=== PATIENT | female | born 1930 | race Caucasian/White ===

== ENCOUNTER 2017-09-12 16:36 | Outpatient (CLI) | payer MEDICARE, OTHER | END 2017-09-12 16:37 | disposition home or self-care (01) | LOC: BICRAD 16:36 | PROVIDERS: ATTEND Internal Medicine | DX: M25.521 Pain in right elbow (principal); M25.421 Effusion, right elbow; M19.021 Primary osteoarthritis, right elbow ==

== ENCOUNTER 2018-08-10 09:38 | Outpatient (CLI) | payer MEDICARE, OTHER | END 2018-08-10 09:39 | disposition home or self-care (01) | LOC: BICMAMMO 09:38 | PROVIDERS: ATTEND Internal Medicine | DX: Z12.31 Encounter for screening mammogram for malignant neoplasm of breast (principal); Z80.3 Family history of malignant neoplasm of breast | CPT/HCPCS: 77063; 77067 ==

== ENCOUNTER 2019-09-02 09:27 | Emergency (ER) | payer MEDICARE, OTHER ==
[2019-09-02 10:30] LABS: #Basophils 0.1 thou/uL (0.0-0.2); #Eosinphils 0.3 thou/uL (0.0-0.7); #Lymphocytes 1.6 thou/uL (1.20-3.40); #Monocytes 0.5 thou/uL (0.11-0.59); #Neutrophils 4.6 thou/uL (1.40-6.50); %Basophils 1.3 % (0.0-1.0); %Eosinophils 4.1 % (0.0-10.0); %Lymphocytes 22.4 % (21.0-51.0); %Monocytes 7.1 % (0.0-10.0); %Neutrophils 65.1 % (42.0-75.0); Hemoglobin 12.6 g/dL (12.0-16.0); Mean Corpuscular HGB CONC 33.3 g/dL (32.0-36.0); Mean Corpuscular Hemoglobin 32.4 pg (27.0-31.0); Mean Corpuscular Volume 97.4 fL (78.0-98.0); Mean Platelet Volume 10.4 fL (7.4-10.4); Platelet Count 132 thou/uL (130-400); RBC Distribution Width 14.1 % (11.5-14.5); Red Blood Cell (RBC) Count 3.89 mill/uL (4.20-5.40); White Blood Cell (WBC) Count 7.1 thou/uL (4.8-10.8)
[2019-09-02] MEDS ORDERED: Dexamethasone 4 mg/ml Vial ONE (10:30)
[2019-09-02] MEDS ORDERED: Lorazepam 2 MG/ML VIAL ONE (10:30)
[2019-09-02] MEDS ORDERED: Meclizine HCl 25 MG TAB ONE (10:30)
--- NOTE | 2019-09-02 10:57 | CT ---
Exam: CT brain PROVIDED CLINICAL HISTORY: Altered mental status, dizziness COMPARISON: 12/05/2005 FINDINGS: The ventricular system is normal in size and morphology. No evidence for intracranial hemorrhage or mass effect. There is opacification of the majority of the frontal sinus. Cerebral volume loss is noted. IMPRESSION: 1. No evidence for intracranial hemorrhage or mass effect. 2. Frontal sinus opacification as described.
[2019-09-02 10:59] LABS: ALT (SGPT) 24 U/L (8-55); AST (SGOT) 22 U/L (5-34); Alkaline Phosphatase 73 U/L (40-110); Anion Gap 13 mmol/L (10-20); BUN (Urea Nitrogen) 19 mg/dL (9.8-20.1); Bilirubin, Total 0.6 mg/dL (0.2-1.2); CK (CPK) 37 U/L (29-168); Calc. Creatinine Clearance 0 mL/min (70-130); Calcium 9.7 mg/dL (7.8-10.44); Carbon Dioxide 22 mmol/L (23-31); Chloride 110 mmol/L (98-107); Estimated GFR-MDRD 45; Globulin 3.1 g/dL (2.4-3.5); Glucose 100 mg/dL (83-110); Lipase 20 U/L (8-78); Potassium 3.9 mmol/L (3.5-5.1); Protein, Total 7.1 g/dL (6.0-8.3); Sodium 141 mmol/L (136-145)
[2019-09-02 11:10] LABS: CKMB 1.6 ng/mL (0-6.6)
[2019-09-02 12:23] LABS: Troponin I Less than 0.010 ng/mL (< 0.028)
== END 2019-09-02 12:54 | disposition home or self-care (01) ==
LOC: ERS 09:27
DX: I11.0 Hypertensive heart disease with heart failure (principal); I50.9 Heart failure, unspecified; J32.1 Chronic frontal sinusitis; I48.91 Unspecified atrial fibrillation; E78.5 Hyperlipidemia, unspecified; E78.00 Pure hypercholesterolemia, unspecified; Z79.899 Other long term (current) drug therapy; Z79.01 Long term (current) use of anticoagulants
CPT/HCPCS: 36415; 70450; 80053; 82550; 82553; 83690; 83880; 84484; 85025; 93005; 96361; 96374; 96375; J1100; J2060; J8597

== ENCOUNTER 2021-01-19 14:48 | Outpatient (CLI) | payer MEDICARE, OTHER ==
[2021-01-19 16:05] LABS: Anion Gap 14 mmol/L (10-20); BUN (Urea Nitrogen) 36 mg/dL (9.8-20.1); Calc. Creatinine Clearance 0 mL/min (70-130); Carbon Dioxide 23 mmol/L (23-31); Chloride 109 mmol/L (98-107); Glucose 86 mg/dL (83-110); Potassium 4.6 mmol/L (3.5-5.1); Sodium 141 mmol/L (136-145)
[2021-01-19 16:12] LABS: Hemoglobin 11.6 g/dL (12.0-15.5); Mean Corpuscular HGB CONC 32.4 g/dL (32.0-36.0); Mean Corpuscular Hemoglobin 31.9 pg (27.0-33.0); Mean Corpuscular Volume 98.4 fl (81.6-98.3); Mean Platelet Volume 12.3 fl (7.4-10.4); Platelet Count 163 10x3/uL (150-450); RBC Distribution Width 14.8 % (11.5-14.5); Red Blood Cell (RBC) Count 3.64 10x6/uL (3.90-5.03); White Blood Cell (WBC) Count 8.1 10x3/uL (3.5-10.5)
[2021-01-19 16:25] LABS: INR-International Normal Ratio 2.3; PTT 38.7 sec (22.0-33.0); Prothrombin Time 24.5 sec (9.5-12.1)
[2021-01-20 02:10] LABS: SARS-CoV-2 PCR by NAA Not Detected (NotDetected)
== END 2021-01-19 14:49 | disposition home or self-care (01) ==
LOC: LABBT 14:48
PROVIDERS: ATTEND Internal Medicine Cardiovascular Disease
DX: Z01.812 Encounter for preprocedural laboratory examination (principal); I48.91 Unspecified atrial fibrillation; Z20.822 Contact with and (suspected) exposure to COVID-19
CPT/HCPCS: 80048; 85027; 85610; 85730; U0003; U0005; 87635

== ENCOUNTER 2021-01-21 06:14 | Day surgery (SDC) | payer MEDICARE, OTHER ==
[2021-01-20 14:40] VITALS: BMI 25.0
[2021-01-21] MEDS ORDERED: Heparin 10,000 UNITS/ 10 ML VIAL ONE (08:58)
[2021-01-21] MEDS ORDERED: Lidocaine 1% (PF) 30 ML VIAL ONE ×2 (08:58→10:30)
[2021-01-21] MEDS ORDERED: Midazolam HCl 2 mg/2 ml Vial ONE (09:05)
[2021-01-21] MEDS ORDERED: Ketamine 50 MG/ML (10ML VIAL) ONE (09:05)
[2021-01-21] MEDS ORDERED: Fentanyl 100 MCG/2 ML VIAL ONE (09:05)
[2021-01-21] MEDS ORDERED: Propofol 1,000 MG/100 ML VIAL IV ONE (09:05)
[2021-01-21] MEDS ORDERED: ePHEDrine Sulfate 50 MG/10 ML VIAL ONE (09:19)
[2021-01-21] MEDS ORDERED: PROPOFOL 200 MG/20 ML VIAL ONE (09:19)
[2021-01-21] MEDS ORDERED: DOPamine 400 MG/D5W 250 ML 250 ML ONE (10:05)
[2021-01-21] MEDS ORDERED: CEFAZOLIN 1 GM VIAL ONE (10:30)
[2021-01-21] MEDS ORDERED: Gentamicin 80 MG/2 ML VIAL ONE (10:30)
== END 2021-01-21 15:07 | disposition home or self-care (01) ==
LOC: CCL 06:14
PROVIDERS: ATTEND Internal Medicine Cardiovascular Disease
PROC: 02583ZZ Destruction of Conduction Mechanism, Percutaneous Approach (ICD-10-PCS; principal; 2021-01-21)
PROC: 02K83ZZ Map Conduction Mechanism, Percutaneous Approach (ICD-10-PCS; 2021-01-21)
PROC: 0JH606Z Insertion of Pacemaker, Dual Chamber into Chest Subcutaneous Tissue and Fascia, Open Approach (ICD-10-PCS; 2021-01-21)
PROC: 0JPT0PZ Removal of Cardiac Rhythm Related Device from Trunk Subcutaneous Tissue and Fascia, Open Approach (ICD-10-PCS; 2021-01-21)
DX: I48.4 Atypical atrial flutter (principal); I48.19 Other persistent atrial fibrillation; I44.30 Unspecified atrioventricular block; I42.8 Other cardiomyopathies; E11.42 Type 2 diabetes mellitus with diabetic polyneuropathy; I13.0 Hypertensive heart and chronic kidney disease with heart failure and stage 1 through stage 4 chronic kidney disease, or unspecified chronic kidney disease; E11.22 Type 2 diabetes mellitus with diabetic chronic kidney disease; N18.9 Chronic kidney disease, unspecified; I50.22 Chronic systolic (congestive) heart failure; E78.5 Hyperlipidemia, unspecified; G47.33 Obstructive sleep apnea (adult) (pediatric); M19.90 Unspecified osteoarthritis, unspecified site; Z45.010 Encounter for checking and testing of cardiac pacemaker pulse generator [battery]; Z79.01 Long term (current) use of anticoagulants; Z79.899 Other long term (current) drug therapy; Z88.5 Allergy status to narcotic agent; Z91.041 Radiographic dye allergy status
CPT/HCPCS: 33228; 76942; 93005; 93010; 93613; 93623; 93650; C1732; C1882; J0690; J1265; J1580; J1644; J2001; J2250; J2704; J3010